=== PATIENT | female | born 2000 | race African-American/Black ===

== ENCOUNTER 2021-01-29 02:40 | Inpatient (IN) | payer OTHER ==
[2021-01-29] MEDS ORDERED: SODIUM CHLORIDE 0.9% 500 ML 500 ML IV STA (03:40)
--- NOTE | 2021-01-29 03:44 | ED ---
General Adult HPI - General Chief complaint: Syncope Stated complaint: Fall, head injury Time Seen by Provider: 01/29/21 03:05 Source: patient, family Mode of arrival: ambulatory Limitations: no limitations - History of Present Illness Initial comments: Patient is a 21-year-old woman brought for evaluation after she had a syncopal episode. Patient states that a little after 2 AM she "fell out." Patient was not having any chest pain, dyspnea, diaphoresis at the time. When she fell she may have struck her head. The patient did have a similar episode about 2 weeks ago. Onset/Timin -: hour(s) Location: head Radiation: neck Quality: dull Consistency: constant Improves with: none Worsens with: none Associated Symptoms: syncope Treatments Prior to Arrival: none - Related Data Previous Rx's Medication Instructions Recorded Acetaminophen Tab [Tylenol] 650 mg PO Q6HR PRN tab 01/31/21 Famotidine [Pepcid] 20 mg PO BID #60 tab 01/31/21 Allergies Allergy/AdvReac Type Severity Reaction Status Date / Time No Known Allergies Allergy Verified 01/29/21 06:54 Review of Systems ROS Statement: Those systems with pertinent positive or pertinent negative responses have been documented in the HPI. ROS Other: All systems not noted in ROS Statement are negative. Constitutional: Denies: fever, chills, weakness Eyes: Denies: eye pain, vision change Respiratory: Denies: cough, dyspnea Cardiovascular: Reports: syncope. Denies: chest pain, palpitations, edema Gastrointestinal: Denies: abdominal pain, nausea, vomiting Genitourinary: Denies: dysuria, hematuria Musculoskeletal: Denies: back pain Skin: Denies: rash Neurological: Denies: headache, weakness, numbness Past Medical History Past Medical History: No Reported History History of Any Multi-Drug Resistant Organisms: None Reported Past Surgical History: No Surgical Hx Reported Past Psychological History: No Psychological Hx Reported Smoking Status: Never smoker Past Alcohol Use History: None Reported Past Drug Use History: None Reported - Past Family History Mother Additional Family Medical History / Comment(s): anemia,hyperthyroidism General Exam Limitations: no limitations General appearance: alert, in no apparent distress Head exam: Present: atraumatic, normocephalic Eye exam: Present: normal appearance. Absent: scleral icterus, conjunctival injection Neck exam: Present: normal inspection, tenderness. Absent: meningismus Respiratory exam: Present: normal lung sounds bilaterally. Absent: respiratory distress, wheezes, rales, rhonchi, stridor Cardiovascular Exam: Present: regular rate, normal rhythm, normal heart sounds. Absent: systolic murmur, diastolic murmur, rubs, gallop GI/Abdominal exam: Present: soft. Absent: distended, tenderness, guarding, rebound, rigid, mass Extremities exam: Present: normal inspection, normal capillary refill. Absent: pedal edema, calf tenderness Back exam: Present: normal inspection. Absent: CVA tenderness (R), CVA tenderness (L), vertebral tenderness Neurological exam: Present: alert, oriented X3, CN II-XII intact. Absent: motor sensory deficit Skin exam: Present: warm, dry, intact, normal color. Absent: rash Course Vital Signs 01/29/21 01/29/21 01/29/21 02:43 05:18 06:33 Temperature 98.6 F 98.5 F Pulse Rate 82 70 86 Respiratory 20 18 18 Rate Blood Pressure 88/58 106/61 92/63 O2 Sat by Pulse 100 100 100 Oximetry 01/29/21 01/29/21 01/29/21 08:04 08:14 08:44 Temperature 98.4 F 98.5 F 98.5 F Pulse Rate 83 81 68 Respiratory 16 18 18 Rate Blood Pressure 97/57 95/58 91/58 O2 Sat by Pulse 98 98 99 Oximetry 01/29/21 01/29/21 09:52 11:59 Temperature Pulse Rate 76 67 Respiratory 18 18 Rate Blood Pressure 93/60 108/57 O2 Sat by Pulse 99 100 Oximetry EKG Findings - EKG Results: EKG: interpreted by CHIP, WNL, sinus rhythm (Rate 70 bpm), normal axis, normal QRS, normal ST/T, no acute changes - RI, Pacemaker, Normal: Normal tracing: normal tracing Medical Decision Making - Lab Data Result diagrams: 01/31/21 06:14 01/29/21 04:15 Lab Results 01/29/21 01/29/21 01/29/21 Range/Units 04:15 04:15 04:15 WBC 5.2 (3.8-10.6) k/uL RBC 3.32 L (3.80-5.40) m/uL Hgb 5.7 L* (11.4-16.0) gm/dL Hct 21.7 L (34.0-46.0) % MCV 65.4 L (80.0-100.0) fL MCH 17.3 L (25.0-35.0) pg MCHC 26.4 L (31.0-37.0) g/dL RDW 19.6 H (11.5-15.5) % Plt Count 353 (150-450) k/uL MPV 8.1 Neutrophils % 69 % Lymphocytes % 20 % Monocytes % 6 % Eosinophils % 1 % Basophils % 1 % Neutrophils # 3.6 (1.3-7.7) k/uL Lymphocytes # 1.1 (1.0-4.8) k/uL Monocytes # 0.3 (0-1.0) k/uL Eosinophils # 0.0 (0-0.7) k/uL Basophils # 0.1 (0-0.2) k/uL Hypochromasia Marked Poikilocytosis Slight Anisocytosis Slight Microcytosis Marked Retic Count (0.5-2.0) % PT 10.3 (9.0-12.0) sec INR 1.0 (<1.2) APTT 18.2 L (22.0-30.0) sec Sodium (137-145) mmol/L Potassium (3.5-5.1) mmol/L Chloride (98-107) mmol/L Carbon Dioxide (22-30) mmol/L Anion Gap mmol/L BUN (7-17) mg/dL Creatinine (0.52-1.04) mg/dL Est GFR (CKD-EPI)AfAm (>60 ml/min/1.73 sqM) Est GFR (CKD-EPI)NonAf (>60 ml/min/1.73 sqM) Glucose (74-99) mg/dL Calcium (8.4-10.2) mg/dL Iron (50-170) ug/dL TIBC (228-460) ug/dL % Saturation (12.00-45.00) Ferritin (10.0-291.0) ng/mL Total Bilirubin (0.2-1.3) mg/dL AST (14-36) U/L ALT (4-34) U/L Alkaline Phosphatase (38-126) U/L Troponin I (0.000-0.034) ng/mL Total Protein (6.3-8.2) g/dL Albumin (3.5-5.0) g/dL Urine Color Light Yellow Urine Appearance Clear (Clear) Urine pH 6.0 (5.0-8.0) Ur Specific Mcintosh 1.005 (1.001-1.035) Urine Protein Negative (Negative) Urine Glucose (UA) Negative (Negative) Urine Ketones Negative (Negative) Urine Blood Negative (Negative) Urine Nitrite Negative (Negative) Urine Bilirubin Negative (Negative) Urine Urobilinogen <2.0 (<2.0) mg/dL Ur Leukocyte Esterase Small H (Negative) Urine RBC <1 (0-5) /hpf Urine WBC 7 H (0-5) /hpf Ur Squamous Epith Cells 2 (0-4) /hpf Amorphous Sediment Rare H (None) /hpf Urine Bacteria Rare H (None) /hpf Blood Type Blood Type Confirm Blood Type Recheck Bld Type Recheck Status Antibody Screen Crossmatch Spec Expiration Date 01/29/21 01/29/21 01/29/21 Range/Units 04:15 04:15 04:15 WBC (3.8-10.6) k/uL RBC (3.80-5.40) m/uL Hgb (11.4-16.0) gm/dL Hct (34.0-46.0) % MCV (80.0-100.0) fL MCH (25.0-35.0) pg MCHC (31.0-37.0) g/dL RDW (11.5-15.5) % Plt Count (150-450) k/uL MPV Neutrophils % % Lymphocytes % % Monocytes % % Eosinophils % % Basophils % % Neutrophils # (1.3-7.7) k/uL Lymphocytes # (1.0-4.8) k/uL Monocytes # (0-1.0) k/uL Eosinophils # (0-0.7) k/uL Basophils # (0-0.2) k/uL Hypochromasia Poikilocytosis Anisocytosis Microcytosis Retic Count 2.0 (0.5-2.0) % PT (9.0-12.0) sec INR (<1.2) APTT (22.0-30.0) sec Sodium 135 L (137-145) mmol/L Potassium 4.4 (3.5-5.1) mmol/L Chloride 105 (98-107) mmol/L Carbon Dioxide 23 (22-30) mmol/L Anion Gap 7 mmol/L BUN 13 (7-17) mg/dL Creatinine 0.63 (0.52-1.04) mg/dL Est GFR (CKD-EPI)AfAm >90 (>60 ml/min/1.73 sqM) Est GFR (CKD-EPI)NonAf >90 (>60 ml/min/1.73 sqM) Glucose 103 H (74-99) mg/dL Calcium 9.2 (8.4-10.2) mg/dL Iron (50-170) ug/dL TIBC (228-460) ug/dL % Saturation (12.00-45.00) Ferritin (10.0-291.0) ng/mL Total Bilirubin 0.2 (0.2-1.3) mg/dL AST 31 (14-36) U/L ALT 7 (4-34) U/L Alkaline Phosphatase 44 (38-126) U/L Troponin I <0.012 (0.000-0.034) ng/mL Total Protein 7.5 (6.3-8.2) g/dL Albumin 4.3 (3.5-5.0) g/dL Urine Color Urine Appearance (Clear) Urine pH (5.0-8.0) Ur Specific Mcintosh (1.001-1.035) Urine Protein (Negative) Urine Glucose (UA) (Negative) Urine Ketones (Negative) Urine Blood (Negative) Urine Nitrite (Negative) Urine Bilirubin (Negative) Urine Urobilinogen (<2.0) mg/dL Ur Leukocyte Esterase (Negative) Urine RBC (0-5) /hpf Urine WBC (0-5) /hpf Ur Squamous Epith Cells (0-4) /hpf Amorphous Sediment (None) /hpf Urine Bacteria (None) /hpf Blood Type Blood Type Confirm Blood Type Recheck Bld Type Recheck Status Antibody Screen Crossmatch Spec Expiration Date 01/29/21 01/29/21 01/29/21 Range/Units 04:15 06:10 06:17 WBC (3.8-10.6) k/uL RBC (3.80-5.40) m/uL Hgb (11.4-16.0) gm/dL Hct (34.0-46.0) % MCV (80.0-100.0) fL MCH (25.0-35.0) pg MCHC (31.0-37.0) g/dL RDW (11.5-15.5) % Plt Count (150-450) k/uL MPV Neutrophils % % Lymphocytes % % Monocytes % % Eosinophils % % Basophils % % Neutrophils # (1.3-7.7) k/uL Lymphocytes # (1.0-4.8) k/uL Monocytes # (0-1.0) k/uL Eosinophils # (0-0.7) k/uL Basophils # (0-0.2) k/uL Hypochromasia Poikilocytosis Anisocytosis Microcytosis Retic Count (0.5-2.0) % PT (9.0-12.0) sec INR (<1.2) APTT (22.0-30.0) sec Sodium (137-145) mmol/L Potassium (3.5-5.1) mmol/L Chloride (98-107) mmol/L Carbon Dioxide (22-30) mmol/L Anion Gap mmol/L BUN (7-17) mg/dL Creatinine (0.52-1.04) mg/dL Est GFR (CKD-EPI)AfAm (>60 ml/min/1.73 sqM) Est GFR (CKD-EPI)NonAf (>60 ml/min/1.73 sqM) Glucose (74-99) mg/dL Calcium (8.4-10.2) mg/dL Iron 8 L (50-170) ug/dL TIBC 470 H (228-460) ug/dL % Saturation 1.70 L (12.00-45.00) Ferritin 4.0 L (10.0-291.0) ng/mL Total Bilirubin (0.2-1.3) mg/dL AST (14-36) U/L ALT (4-34) U/L Alkaline Phosphatase (38-126) U/L Troponin I (0.000-0.034) ng/mL Total Protein (6.3-8.2) g/dL Albumin (3.5-5.0) g/dL Urine Color Urine Appearance (Clear) Urine pH (5.0-8.0) Ur Specific Mcintosh (1.001-1.035) Urine Protein (Negative) Urine Glucose (UA) (Negative) Urine Ketones (Negative) Urine Blood (Negative) Urine Nitrite (Negative) Urine Bilirubin (Negative) Urine Urobilinogen (<2.0) mg/dL Ur Leukocyte Esterase (Negative) Urine RBC (0-5) /hpf Urine WBC (0-5) /hpf Ur Squamous Epith Cells (0-4) /hpf Amorphous Sediment (None) /hpf Urine Bacteria (None) /hpf Blood Type O Positive Blood Type Confirm O Positive Blood Type Recheck No Previous Record Bld Type Recheck Status CABO Indicated Antibody Screen NEGATIVE Crossmatch See Detail Spec Expiration Date 02/01/20212309 Disposition Clinical Impression: Syncope, Anemia Disposition: ADMITTED IP TO THIS [facility] Condition: Stable Is patient prescribed a controlled substance at d/c from ED?: No
[2021-01-29 04:43] LABS: ALT 7 U/L (4-34); AST 31 U/L (14-36); African American GFR (CKD) >90 (>60 ml/min/1.73 sqM); Albumin 4.3 g/dL (3.5-5.0); Alkaline Phosphatase 44 U/L (38-126); Anion Gap 7 mmol/L; Blood Urea Nitrogen 13 mg/dL (7-17); Calcium 9.2 mg/dL (8.4-10.2); Carbon Dioxide 23 mmol/L (22-30); Chloride 105 mmol/L (98-107); Glucose 103 mg/dL (74-99); Non-African American GFR(CKD) >90 (>60 ml/min/1.73 sqM); Potassium 4.4 mmol/L (3.5-5.1); Sodium 135 mmol/L (137-145); Total Bilirubin 0.2 mg/dL (0.2-1.3); Total Protein 7.5 g/dL (6.3-8.2)
[2021-01-29 04:56] LABS: Anisocytosis Slight; Basophils # (A) 0.1 k/uL (0-0.2); Basophils % (A) 1 %; Eosinophils % (A) 1 %; HCT 21.7 % (34.0-46.0); Hypochromasia Marked; Lymphocytes # (A) 1.1 k/uL (1.0-4.8); Lymphocytes % (A) 20 %; MCH 17.3 pg (25.0-35.0); MCHC 26.4 g/dL (31.0-37.0); MCV 65.4 fL (80.0-100.0); Mean Platelet Volume 8.1; Microcytosis Marked; Monocytes # (A) 0.3 k/uL (0-1.0); Monocytes % (A) 6 %; Neutrophils # (A) 3.6 k/uL (1.3-7.7); Neutrophils % (A) 69 %; Platelet Count 353 k/uL (150-450); Poikilocytosis Slight; RBC 3.32 m/uL (3.80-5.40); RDW 19.6 % (11.5-15.5); WBC 5.2 k/uL (3.8-10.6)
[2021-01-29 05:02] LABS: HGB 5.7 gm/dL (11.4-16.0)
[2021-01-29 05:08] LABS: Prothrombin Time 10.3 sec (9.0-12.0)
--- NOTE | 2021-01-29 05:12 | XR ---
EXAMINATION TYPE: XR chest 2V DATE OF EXAM: 01/29/2021 COMPARISON: NONE HISTORY: Syncope TECHNIQUE: 2 views FINDINGS: Heart and mediastinum are normal. Lungs are clear. Diaphragm is normal. Bony thorax is inta ct. IMPRESSION: Normal chest.
[2021-01-29 05:15] LABS: Partial Thromboplastin Time 18.2 sec (22.0-30.0)
--- NOTE | 2021-01-29 05:15 | CT ---
EXAMINATION TYPE: CT brain cspine wo con DATE OF EXAM: 01/29/2021 COMPARISON: November 16, 2010 HISTORY: right side neck pain, blacked out and fell CT DLP: 1188 mGycm Automated exposure control for dose reduction was used. Ventricles and sulci appear normal. There is no mass effect nor midline shift. There is no sign of in tracranial hemorrhage. Calvarium is intact. Skull base is intact. There is normal aeration of the mas toid sinuses. Cervical vertebra have normal alignment. Disc spaces are normal. Posterior elements are intact. Facet joints appear normal. Prevertebral soft tissues appear normal. IMPRESSION: Normal CT scan of the brain. No change. Negative CT scan cervical spine.
[2021-01-29 05:32] LABS: Amorphous Sediment,Urine Rare /hpf; Appearance,Urine Clear (Clear); Bacteria,Urine Rare /hpf; Bilirubin,Urine Negative (Negative); Blood,Urine Negative (Negative); Color,Urine Light Yellow; Glucose,Urine (UA) Negative (Negative); Ketones,Urine Negative (Negative); Leukocyte Esterase,Urine Small (Negative); Nitrite,Urine Negative (Negative); Protein,Urine Negative (Negative); RBC,Urine <1 /hpf (0-5); Specific Gravity,Urine 1.005 (1.001-1.035); Squamous Epithelial Cell,Urine 2 /hpf (0-4); Urobilinogen,Urine <2.0 mg/dL (<2.0); WBC,Urine 7 /hpf (0-5)
[2021-01-29] MEDS ORDERED: ACETAMINOPHEN TAB 325 MG TAB PO PRN (05:59)
[2021-01-29] MEDS ORDERED: NALOXONE 0.4 MG/ML 1 ML VIAL IV PRN (05:59)
[2021-01-29] MEDS: SODIUM CHLORIDE 0.9% 1,000 ML IV SCH (06:33)
[2021-01-29] MEDS: FAMOTIDINE 20 MG TAB PO SCH ×2 (10:17→20:41)
[2021-01-29 10:58] LABS: % Iron Saturation 1.7 (12.00-45.00)
[2021-01-29 11:18] LABS: Anisocytosis Moderate; Basophils % (A) 1 %; Eosinophils % (A) 1 %; HCT 26.5 % (34.0-46.0); HGB 7.1 gm/dL (11.4-16.0); Hypochromasia Marked; Lymphocytes # (A) 1.2 k/uL (1.0-4.8); Lymphocytes % (A) 20 %; MCH 18.5 pg (25.0-35.0); MCHC 26.7 g/dL (31.0-37.0); MCV 69.3 fL (80.0-100.0); Mean Platelet Volume 8.3; Microcytosis Marked; Monocytes # (A) 0.2 k/uL (0-1.0); Monocytes % (A) 4 %; Neutrophils # (A) 4.2 k/uL (1.3-7.7); Neutrophils % (A) 71 %; Platelet Count 291 k/uL (150-450); Poikilocytosis Marked; RBC 3.82 m/uL (3.80-5.40); RDW 20.4 % (11.5-15.5); WBC 5.8 k/uL (3.8-10.6)
--- NOTE | 2021-01-29 14:05 | P.HPIM ---
History of Present Illness Patient is an 21-year-old female came in with a syncopal episode. Patient is still lightheaded. Patient is found to have hemoglobin of 6.7. Patient was comparing of menometrorrhagia sometimes associated with clots. Patient menst rual cycle lasts more than 5 days. Patient is found to have a microcytic anemia with MCV of around 67, does have RDW along with anisocytosis and microcytosis. Serum ferritin level is around 4. Patient denied any blood in the stools dark stools or hematemesis. Patient denied any history of thalassemia as her sickle cell traits of sickle cell disease in any of the family members. Patient reticu locyte count is within normal limits REVIEW OF SYSTEMS: CONSTITUTIONAL: No fever, no malaise, no fatigue. HEENT: No recent visual problems or hearing problems. Denied any sore throat. CARDIOVASCULAR: No chest pain, orthopnea, PND, no palpitations, PULMONARY: No shortness of breath, no cough, no hemoptysis. GASTROINTESTINAL: No diarrhea, no nausea, no vomiting, no abdominal pain. NEUROLOGICAL: No headaches, no weakness, no numbness. HEMATOLOGICAL: Denies any bleeding or petechiae. GENITOURINARY: Denies any burning micturition, frequency, or urgency. MUSCULOSKELETAL/RHEUMATOLOGICAL: Denies any joint pain, swelling, or any muscle pain. ENDOCRINE: Denies any polyuria or polydipsia. The rest of the 14-point review of systems is negative. PHYSICAL EXAMINATION: GENERAL: The patient is alert and oriented x3, not in any acute distress. Well developed, well nourished. HEENT: Pupils are round and equally reacting to light. EOMI. No scleral icterus. Does have conjunctival pallor. Normocephalic, atraumatic. No pharyngeal erythema. No thyromegaly. CARDIOVASCULAR: S1 and S2 present. No murmurs, rubs, or gallops. PULMONARY: Chest is clear to auscultation, no wheezing or crackles. ABDOMEN: Soft, nontender, nondistended, normoactive bowel sounds. No palpable organomegaly. MUSCULOSKELETAL: No joint swelling or deformity. EXTREMITIES: No cyanosis, clubbing, or pedal edema. NEUROLOGICAL: Gross neurological examination did not reveal any focal deficits. SKIN: No rashes. Assessment and plan -Syncope: Secondary to severe anemia which is probably subacute to chronic blood loss from her menometrorrhagia. Patient used to use of oral contraceptive pills in the past. Patient does have irregular cycles. Gynecology will be consulted patient will be transfused 1 more unit of blood considering her lightheadedness and her hemoglobin still below 8. -Symptomatic anemia -Severe iron deficiency patient will be given IV iron supplementation as well. We'll also do hemoglobin electrophoresis considering her race, the possibility of beta thalassemia are sickle cell trait or disease is low. -I symptomatic bacteriuria DVT prophylaxis: Early ambulation Past Medical History Past Medical History: No Reported History History of Any Multi-Drug Resistant Organisms: None Reported Past Surgical History: No Surgical Hx Reported Past Psychological History: No Psychological Hx Reported Smoking Status: Never smoker Past Alcohol Use History: None Reported Past Drug Use History: None Reported Medications and Allergies Home Medications Medication Instructions Recorded Confirmed Type No Known Home Medications 01/29/21 01/29/21 History Allergies Allergy/AdvReac Type Severity Reaction Status Date / Time No Known Allergies Allergy Verified 01/29/21 06:54 Physical Exam Vitals: Vital Signs Temp Pulse Pulse Resp BP BP Pulse Ox 01/29/21 12:50 98.7 F 65 16 107/67 100 01/29/21 11:59 67 18 108/57 100 01/29/21 09:52 76 18 93/60 99 01/29/21 08:44 98.5 F 68 18 91/58 99 01/29/21 08:14 98.5 F 81 18 95/58 98 01/29/21 08:04 98.4 F 83 16 97/57 98 01/29/21 06:33 86 18 92/63 100 01/29/21 05:18 98.5 F 70 18 106/61 100 01/29/21 02:43 98.6 F 82 20 88/58 100 Intake and Output 01/28/21 01/29/21 01/29/21 22:59 06:59 14:59 Intake Total 310 Balance 310 Intake: Blood Product 310 Rc As-1 Unit 310 [id number] Other: Weight 52.163 kg Results CBC & Chem 7: 01/29/21 10:56 01/29/21 04:15 Labs: Abnormal Lab Results - Last 24 Hours (Table) 01/29/21 01/29/21 01/29/21 Range/Units 04:15 04:15 04:15 RBC 3.32 L (3.80-5.40) m/uL Hgb 5.7 L* (11.4-16.0) gm/dL Hct 21.7 L (34.0-46.0) % MCV 65.4 L (80.0-100.0) fL MCH 17.3 L (25.0-35.0) pg MCHC 26.4 L (31.0-37.0) g/dL RDW 19.6 H (11.5-15.5) % APTT 18.2 L (22.0-30.0) sec Sodium (137-145) mmol/L Glucose (74-99) mg/dL Iron (50-170) ug/dL TIBC (228-460) ug/dL % Saturation (12.00-45.00) Ferritin (10.0-291.0) ng/mL Ur Leukocyte Esterase Small H (Negative) Urine WBC 7 H (0-5) /hpf Amorphous Sediment Rare H (None) /hpf Urine Bacteria Rare H (None) /hpf Crossmatch 01/29/21 01/29/21 01/29/21 Range/Units 04:15 04:15 06:10 RBC (3.80-5.40) m/uL Hgb (11.4-16.0) gm/dL Hct (34.0-46.0) % MCV (80.0-100.0) fL MCH (25.0-35.0) pg MCHC (31.0-37.0) g/dL RDW (11.5-15.5) % APTT (22.0-30.0) sec Sodium 135 L (137-145) mmol/L Glucose 103 H (74-99) mg/dL Iron 8 L (50-170) ug/dL TIBC 470 H (228-460) ug/dL % Saturation 1.70 L (12.00-45.00) Ferritin 4.0 L (10.0-291.0) ng/mL Ur Leukocyte Esterase (Negative) Urine WBC (0-5) /hpf Amorphous Sediment (None) /hpf Urine Bacteria (None) /hpf Crossmatch See Detail 01/29/21 Range/Units 10:56 RBC (3.80-5.40) m/uL Hgb 7.1 L (11.4-16.0) gm/dL Hct 26.5 L (34.0-46.0) % MCV 69.3 L (80.0-100.0) fL MCH 18.5 L (25.0-35.0) pg MCHC 26.7 L (31.0-37.0) g/dL RDW 20.4 H (11.5-15.5) % APTT (22.0-30.0) sec Sodium (137-145) mmol/L Glucose (74-99) mg/dL Iron (50-170) ug/dL TIBC (228-460) ug/dL % Saturation (12.00-45.00) Ferritin (10.0-291.0) ng/mL Ur Leukocyte Esterase (Negative) Urine WBC (0-5) /hpf Amorphous Sediment (None) /hpf Urine Bacteria (None) /hpf Crossmatch
[2021-01-29] MEDS: SODIUM FERRIC GLUCONAT-SUCROSE 125 MG in SODIUM CHLORIDE 0.9% 100 ML IVPB SCH (14:28)
--- NOTE | 2021-01-29 21:15 | US ---
EXAMINATION TYPE: US abdomen limited DATE OF EXAM: 01/29/2021 COMPARISON: NONE CLINICAL HISTORY: splenomegaly. Splenomegaly per order. EXAM MEASUREMENTS: Spleen: 9.0 cm Left Kidney: 11.0 x 5.3 x 3.9 cm 1. Spleen: Hyperechoic focus seen measuring 0.2 x 0.2 x 0.2 cm. Additional tiny scattered hyperecho ic foci seen within spleen. 2. Left Kidney: No hydronephrosis or masses seen. Heterogeneous appearance. IMPRESSION: There are small echogenic foci in the spleen that could relate to granulomatous disease. There is no splenomegaly.
[2021-01-30 06:00] LABS: Anisocytosis Moderate; Basophils # (A) 0.1 k/uL (0-0.2); Basophils % (A) 1 %; Eosinophils # (A) 0.1 k/uL (0-0.7); Eosinophils % (A) 1 %; HCT 27.2 % (34.0-46.0); HGB 8.3 gm/dL (11.4-16.0); Hypochromasia Marked; Lymphocytes # (A) 1.7 k/uL (1.0-4.8); Lymphocytes % (A) 20 %; MCH 21.6 pg (25.0-35.0); MCHC 30.4 g/dL (31.0-37.0); Mean Platelet Volume 8.7; Microcytosis Marked; Monocytes # (A) 0.5 k/uL (0-1.0); Monocytes % (A) 6 %; Neutrophils # (A) 5.8 k/uL (1.3-7.7); Neutrophils % (A) 71 %; Platelet Count 244 k/uL (150-450); Poikilocytosis Marked; RBC 3.83 m/uL (3.80-5.40); RDW 21.9 % (11.5-15.5); WBC 8.2 k/uL (3.8-10.6)
[2021-01-30] MEDS: FAMOTIDINE 20 MG TAB PO SCH ×2 (08:18→08:19)
[2021-01-30] MEDS: SODIUM FERRIC GLUCONAT-SUCROSE 125 MG in SODIUM CHLORIDE 0.9% 100 ML IVPB SCH (08:19)
[2021-01-30] MEDS: SODIUM CHLORIDE 0.9% 1,000 ML IV SCH (08:19)
--- NOTE | 2021-01-30 08:29 | P.OBCN ---
History of Present Illness Consult date: 01/30/21 Requesting physician: Luis Morrissey Reason for consult: menorrhagia Chief complaint: Syncope with anemia History of present illness: This is a 21-year-old female 1 para 1 who presented to the emergency room after a syncopal episode where she fell and hit her head. She was found to be very anemic with a hemoglobin of 5.7. She was admitted and given blood. I am consulted for metromenorrhagia. In asking the patient about her periods, she states that her periods are regular and normal and not heavy. She states that they are generally once a month and she occasionally will skip a period and they last 5-6 days with normal flow. She states her last menstrual period was around the beginning of December and lasted 5-6 days. She is not currently bleeding. She occasionally will have some bleeding in between periods that is "thinner". She does have an [employer] that she follows with out of [place]. She stopped her recently in November or December of this year and did have a Pap smear that she states was normal. She has recently been treated for trichomonas and was due to go back for a test of cure on January 15 but missed her appointment. The patient does also have a history of chlamydia treated in 2016 and she has been treated for Trichomonas twice. She does not have a current partner. Her history is significant for 1 vaginal delivery in December 2018. She was on dip oh for many years due to vomiting with her menses. Her menses started at age 8. She was on control pills for a short while after she delivered her child but not currently. She denies any history of heavy menses. She is not opposed to restarting control pills. She cannot remember the name of the pill that she was recently on. Review of Systems Respiratory: Denies dyspnea Genitourinary: Reports dysmenorrhea (Mild), Denies Menstruation: Reports menses 1-7 days, Reports menses variable, Denies period heavy Neurological: Reports syncope Past Medical History Past Medical History: No Reported History Additional Past Medical History / Comment(s): required blood transfusion when giving to her child, had a seizure at 2 years old-no further seizures History of Any Multi-Drug Resistant Organisms: None Reported Past Surgical History: No Surgical Hx Reported Past Anesthesia/Blood Transfusion Reactions: No Reported Reaction Past Psychological History: No Psychological Hx Reported Smoking Status: Current every day smoker, Vaper Past Alcohol Use History: None Reported Past Drug Use History: Marijuana Additional Drug Use History / Comment(s): current marijuana user - Past Family History Mother Additional Family Medical History / Comment(s): anemia,hyperthyroidism Medications and Allergies Home Medications Medication Instructions Recorded Confirmed Type No Known Home Medications 01/29/21 01/29/21 History Allergies Allergy/AdvReac Type Severity Reaction Status Date / Time No Known Allergies Allergy Verified 01/29/21 06:54 Exam Osteopathic Statement: *. No significant issues noted on an osteopathic structural exam other than those noted in the History and Physical/Consult. Vital Signs Temp Pulse Pulse Resp BP BP Pulse Ox 01/30/21 05:00 97.0 F L 64 18 109/66 100 01/29/21 20:53 98.9 F 63 18 101/63 99 01/29/21 20:36 97.5 F L 68 18 119/77 100 01/29/21 17:59 98.9 F 60 18 107/68 01/29/21 17:29 98.1 F 86 16 122/77 01/29/21 17:19 98.6 F 58 L 16 100/65 01/29/21 12:50 98.7 F 65 16 107/67 100 01/29/21 11:59 67 18 108/57 100 01/29/21 09:52 76 18 93/60 99 01/29/21 08:44 98.5 F 68 18 91/58 99 Intake and Output 01/29/21 01/30/21 01/30/21 22:59 06:59 14:59 Intake Total 1390 500 Balance 1390 500 Intake: Intake, IV Titration 100 Amount Sodium Ferric Gluconat- 100 Sucrose 125 mg In Sodium Chloride 0.9% 100 ml @ 100 mls/hr IVPB DAILY YONG Rx#:[id number] Oral 980 500 Blood Product 310 Rc As-1 Unit 310 [id number] Other: Voiding Method Toilet # Voids 3 5 Weight 52.163 kg Gen.: Cooperative somewhat drowsy well-developed well-nourished -[place] female in no acute distress Pelvic exam: Deferred at this time Results Result Diagrams: 01/30/21 05:32 01/29/21 04:15 Abnormal Lab Results - Last 24 Hours (Table) 01/29/21 01/29/21 01/29/21 Range/Units 04:15 06:10 10:56 Hgb 7.1 L (11.4-16.0) gm/dL Hct 26.5 L (34.0-46.0) % MCV 69.3 L (80.0-100.0) fL MCH 18.5 L (25.0-35.0) pg MCHC 26.7 L (31.0-37.0) g/dL RDW 20.4 H (11.5-15.5) % Iron 8 L (50-170) ug/dL TIBC 470 H (228-460) ug/dL % Saturation 1.70 L (12.00-45.00) Ferritin 4.0 L (10.0-291.0) ng/mL Crossmatch See Detail 01/30/21 Range/Units 05:32 Hgb 8.3 L (11.4-16.0) gm/dL Hct 27.2 L (34.0-46.0) % MCV 71.0 L (80.0-100.0) fL MCH 21.6 L (25.0-35.0) pg MCHC 30.4 L (31.0-37.0) g/dL RDW 21.9 H (11.5-15.5) % Iron (50-170) ug/dL TIBC (228-460) ug/dL % Saturation (12.00-45.00) Ferritin (10.0-291.0) ng/mL Crossmatch Assessment and Plan (1) Syncope Current Visit: Yes Status: Acute Code(s): R55 - SYNCOPE AND COLLAPSE SNOMED Code(s): 614760804 (2) Anemia Current Visit: Yes Status: Acute Code(s): D64.9 - ANEMIA, UNSPECIFIED SNOMED Code(s): 392581837 Plan: In speaking with the patient, I do not believe that her periods are the cause of her anemia. She denies any history of heavy menses and her periods are generally regular. She does have an [employer] that she can follow up with after discharge. I have advised her that if she is unable to follow-up with her [employer], that she may make an appointment at my office for follow-up. It may be helpful to resume her control pills to regulate her menses, however I do not believe that her menses are the cause of her significant anemia due to the fact that her menses are fairly regular in flow. Thank you very much for this consultation.
[2021-01-30] MEDS ORDERED: ONDANSETRON 4 MG/2 ML VIAL IVP PRN (12:15)
[2021-01-30] MEDS: IOPAMIDOL CONTRAST (ORAL USE) VIAL PO PRN ×2 (14:09→14:59)
--- NOTE | 2021-01-30 16:24 | CT ---
EXAMINATION TYPE: CT abdomen pelvis w con DATE OF EXAM: 01/30/2021 COMPARISON: None HISTORY: abdominal pain CT DLP: 367.9 mGycm Automated exposure control for dose reduction was used. CONTRAST: CT scan of the abdomen pelvis is performed with IV Contrast, patient injected with 100 mL of Isovue 3 00. FINDINGS- Lung bases are clear. There is a small amount of free fluid within the abdomen surrounding the liver and spleen. Liver and spleen are homogeneous in attenuation. Pancreas has a normal appearance. No obv ious gallstones. Kidneys are symmetric in size with no hydronephrosis. Mesenteric vasculature and aorta enhance normally. Portal veins enhance normally. Heart size mildly p rominent. Bowel gas pattern nonspecific. There is more moderate amount of free fluid seen throughout the lower pelvis and. Heterogeneity thin appearance of the cervix and uterus with pelvic varices noted. Endomet rium appears to be thickened. Appendix is not visualized. Bowel gas pattern nonspecific without obstr uction. Retained fecal debris throughout the colon. Appendix is not seen with certainty. There is mil d thickening of the gastric antrum. There is a vague area of enhancement on image 58 through 62 and t he left adnexal region appears to be within the free fluid. Several nonspecific and indeterminate fin ding. Report called to the patient's nurse 4:17 PM 01/30/2021. IMPRESSION- 1. Moderate amount of ascites correlate clinically. There is a vague area of hyperdensity measuring 2 .3 cm adjacent to the left lateral body of the uterus and the left adnexa. Most may be related to non specific enhancement although extravasation from a vascular structure or hemorrhage would also be in the differential diagnosis. Given the finding is indeterminate pelvic ultrasound recommended. 2. Heterogeneity of the uterus and lower uterine segment extending in the cervix. Suspect right-sided cystic ovarian or adnexal lesion recommend pelvic ultrasound. Additionally endometrium appears to be thickened. 3. Mild thickening of the gastric antrum could be related to incomplete distention although correlati on clinically is recommended to exclude gastritis or peptic ulcer disease.
--- NOTE | 2021-01-30 17:32 | US ---
EXAMINATION TYPE: US pelvis complete transvag DATE OF EXAM: 01/30/2021 COMPARISON: CT 01/30/2021 CLINICAL HISTORY: Hyperdensity noted on CT L lateral body of uterus . Difficult exam due to large am ount of free fluid and peristalsing bowel in bilateral adnexa TECHNIQUE: . Transabdominal sonographic images of the pelvis were acquired. Transvaginal sonographi c images were medically necessary to better assess the following anatomy: ovaries Date of LMP: December 2020 EXAM MEASUREMENTS: Uterus: 9.9 x 5.0 x 5.3 cm Endometrial Stripe: 1.6 cm Right Ovary: 3.3 x 2.3 x 1.8 cm Left Ovary: 4.7 x 4.5 x 2.4 cm 1. Uterus: Anteverted wnl 2. Endometrium: Thickened with free fluid within 3. Right Ovary: Complex cystic area visualized measuring 2.9 x 1.6 x 1.6 cm 4. Left Ovary: 4.4 x 2.9 x 4.3 cm cystic area visualized in left adnexa- possible left ovarian cyst, appears simple Spectral, color and waveform doppler imaging shows good arterial and venous flow within the ovaries ; there is no evidence for ovarian torsion within the left ovary. 5. Bilateral Adnexa: Large amount of free fluid visualized bilaterally 6. Posterior cul-de-sac: Large amount of free fluid visualized IMPRESSION: 1. Complex cyst right ovary. Follow-up is recommended in 6 weeks or at the next normal menstrual zonia od. 2. Large simple appearing cyst which can be followed 3. Large amount of free fluid present
--- NOTE | 2021-01-30 20:19 | P.PN ---
Subjective Progress Note Date: 01/30/21 Patient is an 21-year-old female came in with a syncopal episode. Patient is still lightheaded. Patient is found to have hemoglobin of 6.7. Patient was comparing of menometrorrhagia sometimes associated with clots. Patient menstrual cycle lasts more than 5 days. Patient is found to have a microcytic anemia with MCV of around 67, does have RDW along with anisocytosis and microcytosis. Serum ferritin level is around 4. Patient denied any blood in the stools dark stools or hematemesis. Patient denied any history of thalassemia as her sickle cell traits of sickle cell disease in any of the [facility] members. Patient reticulocyte count is within normal limits 01/30/2021 Patient Is seen in follow-up with no acute overnight issues. During midmorning patient experienced severe abdominal cramping and discomfort noted in the umbilical area radiating around to the left lower abdomen and had some nausea associated. Mild globin is improved at 8.3 today and denies any further bleeding. Patient denies any bleeding from bowel and had a bowel movement yesterday but none reported today. Tolerating diet. Patient underwent CT abdomen showing a moderate amount of ascites with a vague area of hyperdensity measuring 2.3 cm adjacent to the left lateral body of the uterus and left adnexa that may be related nonspecific enhancement although extravasation from a vascular structure or hemorrhage is not excluded and recommending pelvic ultrasound, heterogeneity of the uterus and lower uterine segment extending in the cervix with suspect right-sided cystic ovarian or adnexal lesion in the endometrium appears to be thickened with mild thickening in the gastric antrum. Pelvic ultrasound ordered and pending. Review of systems: Constitutional: reports of fatigue, no reports of fever, or chills Cardiovascular: No reports of chest pain or palpitations Respiratory: No reports of shortness of breath or cough GI: reports of nausea, and severe abdominal pain in the umbilical area with a burning sensation : No reports of dysuria or retention Neurovascular: No reports of weakness or numbness All medications have been reviewed PHYSICAL EXAMINATION: GENERAL: The patient is alert and oriented x3, not in any acute distress. Well developed, well nourished. HEENT: Pupils are round and equally reacting to light. EOMI. No scleral icterus. Does have conjunctival pallor. Normocephalic, atraumatic. No pharyngeal erythema. No thyromegaly. CARDIOVASCULAR: S1 and S2 present. No murmurs, rubs, or gallops. PULMONARY: Chest is clear to auscultation, no wheezing or crackles. ABDOMEN: Soft, tenderness noted on the left lower quadrant on palpation, nondistended, normoactive bowel sounds. No palpable organomegaly. MUSCULOSKELETAL: No joint swelling or deformity. EXTREMITIES: No cyanosis, clubbing, or pedal edema. NEUROLOGICAL: Gross neurological examination did not reveal any focal deficits. SKIN: No rashes. Assessment and plan -Syncope: Secondary to severe anemia which is probably subacute to chronic blood loss from her menometrorrhagia. Patient used to use oral contraceptive pills in the past. Patient does have irregular cycles. Gynecology evaluated the patient recommending following up outpatient and resuming control pills -sudden onset Severe abdominal pain possibly due to ovarian cysts as noted on pelvic ultrasound. Will ask OBGYN to review ct and ultrasound of the abdomen and evaluate the patient. -Symptomatic anemia, improving, hemoglobin is 8.3 today with no bleeding noted -Severe iron deficiency patient will be given IV iron supplementation as well. hemoglobin electrophoresis done considering her race, the possibility of beta thalassemia are sickle cell trait or disease is low. -asymptomatic bacteriuria -DVT prophylaxis: Early ambulation Plan: continue current medications. Monitor hemoglobin closely. Patient received iron transfusions and started experiencing severe lower left and mid umbilical discomfort and tenderness with nausea noted and underwent ct abdomen which recommended pelvic ultrasound which revealed bilateral ovarian cysts along with some free fluid noted in the adnexa and posterior cul de sac. Will ask WHEEL LOADER OPERATOR to reevaluate the patient as well as the imaging and may consult surgery if warranted. Patient abdominal pain is improved and patient denies any further nausea or bleeding noted in the stool. Patient is passing gas and tolerating diet. Patient would like to establish with OBGYN and pcp here in town as she had been being seen in the [place] area. Will repeat labs and appreciate WHEEL LOADER OPERATOR recomm endations. Possible discharge in 24 hours. Objective - Vital Signs Vital signs: Vital Signs Temp 98.5 F 01/30/21 12:20 Pulse 66 01/30/21 11:44 Resp 12 01/30/21 11:44 BP 105/64 01/30/21 11:44 Pulse Ox 100 01/30/21 11:44 Intake & Output 01/29/21 01/30/21 01/30/21 18:59 06:59 18:59 Intake Total 1010 1310 Balance 1010 1310 Weight 52.163 kg Intake: Intake, IV Titration 100 Amount Sodium Ferric Gluconat- 100 Sucrose 125 mg In Sodium Chloride 0.9% 100 ml @ 100 mls/hr IVPB DAILY [facility] Rx#:[id number] Oral 600 1000 Blood Product 310 310 Rc As-1 Unit 0 310 [id number] Rc As-1 Unit 310 [id number] Other: Voiding Method Toilet Toilet # Voids 1 5 - Labs CBC & Chem 7: 01/30/21 05:32 01/29/21 04:15 Labs: Abnormal Lab Results - Last 24 Hours (Table) 01/29/21 01/29/21 01/30/21 Range/Units 06:10 10:56 05:32 Hgb 8.3 L (11.4-16.0) gm/dL Hct 27.2 L (34.0-46.0) % MCV 71.0 L (80.0-100.0) fL MCH 21.6 L (25.0-35.0) pg MCHC 30.4 L (31.0-37.0) g/dL RDW 21.9 H (11.5-15.5) % Hemoglobin A1 98.2 H (96.5-97.8) % Hemoglobin A2 1.8 L (2.2-3.2) % Crossmatch See Detail
[2021-01-30 20:55] VITALS: RESP 16
[2021-01-31] MEDS: SODIUM CHLORIDE 0.9% 1,000 ML IV SCH (05:20)
[2021-01-31 05:26] VITALS: BP 98/62; PULSE 58; TEMP 98.8
[2021-01-31 06:43] LABS: Anisocytosis Moderate; Basophils # (A) 0.1 k/uL (0-0.2); Basophils % (A) 1 %; Eosinophils # (A) 0.2 k/uL (0-0.7); Eosinophils % (A) 2 %; HCT 28.7 % (34.0-46.0); HGB 8.6 gm/dL (11.4-16.0); Hypochromasia Marked; Lymphocytes % (A) 22 %; MCH 21.3 pg (25.0-35.0); MCHC 29.8 g/dL (31.0-37.0); MCV 71.4 fL (80.0-100.0); Mean Platelet Volume 8.9; Microcytosis Marked; Monocytes # (A) 0.5 k/uL (0-1.0); Monocytes % (A) 5 %; Neutrophils # (A) 6.1 k/uL (1.3-7.7); Neutrophils % (A) 69 %; Platelet Count 233 k/uL (150-450); Poikilocytosis Marked; RBC 4.02 m/uL (3.80-5.40); RDW 22.6 % (11.5-15.5); WBC 8.8 k/uL (3.8-10.6)
[2021-01-31] MEDS: SODIUM FERRIC GLUCONAT-SUCROSE 125 MG in SODIUM CHLORIDE 0.9% 100 ML IVPB SCH (10:47)
[2021-01-31] MEDS: FAMOTIDINE 20 MG TAB PO SCH (10:47)
--- NOTE | 2021-01-31 23:28 | DS ---
DISCHARGE SUMMARY DATE OF SERVICE: 01/31/2021 FINAL DIAGNOSES: 1. Acute on chronic anemia, possibly secondary to menometrorrhagia. 2. Syncope secondary to severe anemia, status post blood transfusion. 3. Abdominal pain, ovarian cyst. 4. Severe and deficient anemia. 5. Asymptomatic bacteriuria. 6. Deep vein thrombosis prophylaxis. DISCHARGE DISPOSITION: The patient will be discharged in stable condition with guarded prognosis. HISTORY OF PRESENT ILLNESS: This 21-year-old gentleman woman with a past medical problems being, basically moving to this area, was admitted with issues of syncope. Hemoglobin is found to be 5.7. Menometrorrhagia was suspected. Patient was suspected iron deficiency. Serum iron was 8 and Percent TIBC was 470%, 1.7 . The patient was given altogether 2 units transfusion. Hemoglobin improved to 8.6. At this time, I recommend to follow up with [facility] for regarding the cyst, ovarian cyst, and also primary physician. Hemoglobin electrophoresis has been sent. PHYSICAL EXAM On exam, vitals are stable. Cardiovascular: S1, S2. Abdomen soft. Nervous System: Nonfocal. DISCHARGE ADVICE AND MEDICATIONS: 1. Diet cardiac diet. 2. Pepcid 20 mg p.o. b.i.d. 3. Tylenol 650 q.6h p.r.n. 4. Follow up with Dr. Kaylyn Toth in 1 week. 5. Follow up with [facility] in [address] Hartman, Neuro. 7. Follow up with Dr. Palomino in 1 week. 8. Iron supplementation once the hemoglobin electrophoresis clear. MMODL / IJN: [id number] / [facility] CENTERPaula
== END 2021-01-31 14:25 | disposition home or self-care (01) | DRG 812 ==
LOC: EC 02:40 → 5NMEDONC 06:01 → OBSVTOIN 09:59 → 5NMEDONC 11:44
PROVIDERS: ADMIT Hospitalist; ATTEND Hospitalist
PROC: 30233N1 Transfusion of Nonautologous Red Blood Cells into Peripheral Vein, Percutaneous Approach (ICD-10-PCS; principal; 2021-01-29)
DX: D62 Acute posthemorrhagic anemia (principal); N92.1 Excessive and frequent menstruation with irregular cycle; R55 Syncope and collapse; W19.XXXA Unspecified fall, initial encounter; S09.90XA Unspecified injury of head, initial encounter; N83.209 Unspecified ovarian cyst, unspecified side; R82.71 Bacteriuria; F17.290 Nicotine dependence, other tobacco product, uncomplicated
CPT/HCPCS: 36415; 70450; 71046; 72125; 74177; 76705; 76830; 76856; 80053; 81001; 82728; 83021; 83540; 83550; 84484; 84703; 85025; 85045; 85610; 85730; 86850; 86900; 86901; 86920; 93005; 93976; 94760; 99285

== ENCOUNTER 2024-08-09 04:33 | Emergency (ER) | payer OTHER ==
[2024-08-09 04:42] VITALS: RESP 18
--- NOTE | 2024-08-09 04:46 | ED ---
General Adult HPI - General Chief complaint: Nausea/Vomiting/Diarrhea Stated complaint: NVD Time Seen by Provider: 08/09/24 04:42 Source: patient, EMS Mode of arrival: EMS - History of Present Illness Initial comments: 24-year-old female no significant past medical history presenting today for nausea and vomiting. Patient states that she felt fine this evening, went to take her lunch break at work and drink a smoothie. She does not think there was berries in the smoothie however she is not sure because shortly afterwards she had 3 episodes of nonbloody nonbilious emesis. She states she felt like "she was having trouble catching her breathing" after vomiting but denies any chest pain and does not have CHARITO currently. Denies sensation of throat swelling, changes in vision, numbness or weakness. Did states that she felt lightheaded after episodes of emesis. Denies any fevers, abdominal pain, diarrhea, melena, hematochezia, vaginal bleeding, vaginal discharge dysuria or hematuria. States that her symptoms are now improving and she feels mildly lightheaded, her nausea is improving after Zofran for and to IV fluids from EMS. She does not believe to be though first day her last menstrual period was July 05, she is sexually active with men and is not on control. She does state that her periods can be somewhat irregular. She denies fevers, chills or recent illness. - Related Data Previous Rx's Medication Instructions Recorded Acetaminophen Tab [Tylenol] 650 mg PO Q6HR PRN tab 01/31/21 Famotidine [Pepcid] 20 mg PO BID #60 tab 01/31/21 Cephalexin [Keflex] 500 mg PO Q12HR 5 Days #10 cap 08/09/24 Allergies Allergy/AdvReac Type Severity Reaction Status Date / Time blackberry Allergy Rash/Hives Verified 08/09/24 04:42 Review of Systems ROS Statement: Those systems with pertinent positive or pertinent negative responses have been documented in the HPI. ROS Other: All systems not noted in ROS Statement are negative. Past Medical History Past Medical History: No Reported History Additional Past Medical History / Comment(s): required blood transfusion when giving to her child, had a seizure at 2 years old-no further seizures History of Any Multi-Drug Resistant Organisms: None Reported Past Surgical History: No Surgical Hx Reported Past Anesthesia/Blood Transfusion Reactions: No Reported Reaction Past Psychological History: No Psychological Hx Reported Smoking Status: Never smoker Past Alcohol Use History: None Reported Past Drug Use History: None Reported - Past Family History Mother Additional Family Medical History / Comment(s): anemia,hyperthyroidism General Exam - General Exam Comments Initial Comments: PE: CONSTITUTIONAL: [no apparent distress, well appearing] SKIN: [warm, dry, no jaundice, hives or petechiae] EYES:[ pupils are equally round, extraocular movements intact without nystagmus, clear conjunctiva, non-icteric sclera] HENT: [normocephalic, atraumatic, moist mucus membranes, oropharynx clear without exudates] NECK: , [Full range of motion, normal appearance] PULMONARY: [clear to auscultation without wheezes, rhonchi, or rales, normal excursion, no accessory muscle use and no stridor] CARDIOVASCULAR:[ regular rate, rhythm, normal S1 and S2. No appreciated murmurs, rubs or gallops. Strong radial pulses with intact distal perfusion. No lower extremity edema] GASTROINTESTINAL: [soft, active bowel sounds throughout, non-tender, non- distended, no palpable masses, no rebound or guarding. No hepatosplenomegaly] GENITOURINARY: MUSCULOSKELETAL: [Extremities have no gross deformity, no edema, redness, or swelling. No calf swelling ] NEUROLOGIC: [_a/o x 3, GCS 15, normal mentation and speech. Moves all extremities x 4 without motor or sensory deficit] PSYCHIATRIC:[ _normal mood and affect, thought process is clear and linear] Course Vital Signs 08/09/24 08/09/24 04:35 06:56 Pulse Rate 71 102 H Respiratory 18 18 Rate Blood Pressure 106/72 102/72 O2 Sat by Pulse 100 97 Oximetry Medical Decision Making - Medical Decision Making Was pt. sent in by a medical professional or institution (, PA, SENIOR ACCOUNT REPRESENTATIVE, urgent care, hospital, or jail...) When possible be specific @ -No Did you speak to anyone other than the patient for history (EMS, parent, family, police, friend...)? What history was obtained from this source @ -No Did you review nursing and triage notes (agree or disagree)? Why? @ -I reviewed nursing and triage notes Were old charts reviewed (outside hosp., previous admission, EMS record, old EKG, old radiological studies, urgent care reports/EKG's, jail records)? Report findings @ -Medical records reviewed Differential Diagnosis (chest pain, altered mental status, abdominal pain women, abdominal pain men, vaginal bleeding, weakness, fever, dyspnea, syncope, headache, dizziness, GI bleed, back pain, seizure, CVA, palpatations, mental health, musculoskeletal)? Differential diagnose remains broad however top considerations include viral infection, gastroenetritis, , anaphylaxis/ allergic reaction, food se nsitivty/ intolerance, cholecystitis, DKA, this is not an all inclusive list EKG interpreted by me (3pts min.). @ -As above X-rays interpreted by me (1pt min.). @ -None done CT interpreted by me (1pt min.). @ -None done U/S interpreted by me (1pt. min.). @ -None done What testing was considered but not performed or refused? (CT, X-rays, U/S, labs)? Why? @ -None What meds were considered but not given or refused? Why? @ -None Did you discuss the management of the patient with other professionals (professionals i.e. , PA, SENIOR ACCOUNT REPRESENTATIVE, lab, RT, psych nurse, public health social worker, sales representative publications, teacher, chief supply chain officer, supervisor case loading)? Give summary @ -No Was smoking cessation discussed for >3mins.? @ -No Was critical care preformed (if so, how long)? @ -No Were there social determinants of health that impacted care today? How? (Homelessness, low income, unemployed, alcoholism, drug addiction, transportation, low edu. Level, literacy, decrease access to med. care, correction, rehab)? @ -No Was there de-escalation of care discussed even if they declined (Discuss DNR or withdrawal of care, Hospice)? @ -No What co-morbidities impacted this encounter? (DM, HTN, Smoking, COPD, CAD, Cancer, CVA, ARF, Chemo, Hep., AIDS, mental health diagnosis, sleep apnea, morbid obesity)? @ -None Was patient admitted / discharged? Hospital course, mention meds given and route, prescriptions, significant lab abnormalities, going to OR and other pertinent info. @ -Discharged- Patient is a pleasant 24 y/o female no significant PMH presenting today for sudden onset nausea and vomiting after drinking a smoothie at work this morning. 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 Physical exam is reassuring, abdomen soft and nontender with active bowel sounds. LCTAB. No hives/ skin changes or additional findings consistent with anaphylaxis. Plan for IV fluids, nausea medications, basic labs, UA, HCG. Labs show hemoglobin of 7.3, this is baseline for patient she has a history of iron deficiency anemia. UTI with positive nitrites leukocyte esterase. Will order Keflex. Updated pt to findings. On reassessment patient endorses improving symptoms request Sprite. Patient will attempt p.o. intake Patient tolerated crackers and soda. Symptoms are improving. Will send home with ODT Zofran and prescription for Keflex. Patient agreeable plan of care. In my medical judgment there is currently no evidence of an immediate life- threatening or surgical condition. Discharge is therefore indicated at this time. Discharge treatment instructions, follow up instructions, and appropriate em ergency department return precautions were discussed with the patient and/or medical decision maker. Patient and/or medical decision maker expressed understanding of and agreed with the treatment plan, follow up instructions, and emergency department return precaution. All patient's and/or medical decision maker's questions were answered. Undiagnosed new problem with uncertain prognosis? @ -No Drug Therapy requiring intensive monitoring for toxicity (Heparin, Nitro, Insulin, Cardizem)? @ -No Were any procedures done? @ -No Diagnosis/symptom? Nausea and vomiting, UTI Acute, or Chronic, or Acute on Chronic? @acute Uncomplicated (without systemic symptoms) or Complicated (systemic symptoms)? @complicated Side effects of treatment? @ -No Exacerbation, Progression, or Severe Exacerbation? @ -No Poses a threat to life or bodily function? How? (Chest pain, USA, IA, pneumonia, PE, COPD, DKA, ARF, appy, cholecystitis, CVA, Diverticulitis, Homicidal, Suicidal, threat to staff... and all critical care pts) @ -No - Lab Data Result diagrams: 08/09/24 04:44 08/09/24 04:44 Lab Results 08/09/24 08/09/24 08/09/24 Range/Units 04:44 04:44 05:00 WBC 6.3 (3.8-10.6) k/uL RBC 3.46 L (3.80-5.40) m/uL Hgb 7.3 L (11.4-16.0) gm/dL Hct 24.5 L (34.0-46.0) % MCV 70.9 L (80.0-100.0) fL MCH 21.2 L (25.0-35.0) pg MCHC 29.9 L (31.0-37.0) g/dL RDW 16.9 H (11.5-15.5) % Plt Count 211 (150-450) k/uL MPV 9.6 Neutrophils % 68 % Lymphocytes % 24 % Monocytes % 6 % Eosinophils % 1 % Basophils % 0 % Neutrophils # 4.3 (1.3-7.7) k/uL Lymphocytes # 1.5 (1.0-4.8) k/uL Monocytes # 0.4 (0-1.0) k/uL Eosinophils # 0.1 (0-0.7) k/uL Basophils # 0.0 (0-0.2) k/uL Hypochromasia Marked Anisocytosis Slight Microcytosis Moderate Sodium 135 L (137-145) mmol/L Potassium 3.8 (3.5-5.1) mmol/L Chloride 105 (98-107) mmol/L Carbon Dioxide 20 L (22-30) mmol/L Anion Gap 10 mmol/L BUN 22 H (7-17) mg/dL Creatinine 0.84 (0.52-1.04) mg/dL Est GFR (CKD-EPI)AfAm >90 (>60 ml/min/1.73 sqM) Est GFR (CKD-EPI)NonAf >90 (>60 ml/min/1.73 sqM) Glucose 105 H (74-99) mg/dL Calcium 8.4 (8.4-10.2) mg/dL Total Bilirubin 0.3 (0.2-1.3) mg/dL AST 23 (14-36) U/L ALT 8 (4-34) U/L Alkaline Phosphatase 40 (38-126) U/L Total Protein 6.8 (6.3-8.2) g/dL Albumin 3.9 (3.5-5.0) g/dL Lipase 58 (23-300) U/L HCG, Qual Not Detected Urine Color Colorless Urine Appearance Cloudy H (Clear) Urine pH 6.0 (5.0-8.0) Ur Specific [place] 1.025 (1.001-1.035) Urine Protein Trace H (Negative) Urine Glucose (UA) Negative (Negative) Urine Ketones Negative (Negative) Urine Blood Negative (Negative) Urine Nitrite Positive H (Negative) Urine Bilirubin Negative (Negative) Urine Urobilinogen <2.0 (<2.0) mg/dL Ur Leukocyte Esterase Small H (Negative) Urine RBC 1 (0-5) /hpf Urine WBC 3 (0-5) /hpf Ur Squamous Epith Cells 2 (0-4) /hpf Urine Bacteria Moderate H (None) /hpf Urine Mucus Moderate H (None) /hpf Urine Yeast (Budding) Rare H (None) /hpf Disposition Clinical Impression: Nausea and vomiting, UTI (urinary tract infection) Disposition: HOME SELF-CARE Condition: Stable Instructions (If sedation given, give patient instructions): Acute Nausea and Vomiting (ED) Additional Instructions: Every disease is a spectrum and a small chance still exists that a serious condition could develop, for this reason, please monitor yourself closely for new, changing or worsening symptoms, symptoms that persist beyond 48 hours or after completion of antibiotics, chest pain, difficulty breathing, fever, inability to tolerate/keep down fluids or your medications, inability to follow up with outpatient providers as instructed and should you experience these symptoms or should you have any further concerns for your wellbeing please return to the ED or call 911 immediately. PLEASE call your primary care physician as soon as possible to arrange / discuss plan for followup appointment. Appointment in the next 1-3 days is strongly encouraged if possible. PLEASE let us know here before you leave if there is anything further we can do to be of any assistance. Take care and feel Better! Prescriptions: Cephalexin [Keflex] 500 mg PO Q12HR 5 Days #10 cap Is patient prescribed a controlled substance at d/c from ED?: No Referrals: Kaylyn Toth MD [Primary Care Provider] - 1-2 days
[2024-08-09] MEDS: SODIUM CHLORIDE 0.9% 2,000 ML IV STA (05:01)
[2024-08-09] MEDS: ONDANSETRON 4 MG/2 ML VIAL IVP STA (05:02)
[2024-08-09 05:12] LABS: Anisocytosis Slight; Basophils % (A) 0 %; Eosinophils # (A) 0.1 k/uL (0-0.7); Eosinophils % (A) 1 %; HCT 24.5 % (34.0-46.0); HGB 7.3 gm/dL (11.4-16.0); Hypochromasia Marked; Lymphocytes # (A) 1.5 k/uL (1.0-4.8); Lymphocytes % (A) 24 %; MCH 21.2 pg (25.0-35.0); MCHC 29.9 g/dL (31.0-37.0); MCV 70.9 fL (80.0-100.0); Mean Platelet Volume 9.6; Microcytosis Moderate; Monocytes # (A) 0.4 k/uL (0-1.0); Monocytes % (A) 6 %; Neutrophils # (A) 4.3 k/uL (1.3-7.7); Neutrophils % (A) 68 %; Platelet Count 211 k/uL (150-450); RBC 3.46 m/uL (3.80-5.40); RDW 16.9 % (11.5-15.5); WBC 6.3 k/uL (3.8-10.6)
[2024-08-09 05:25] LABS: Anion Gap 10 mmol/L; Blood Urea Nitrogen 22 mg/dL (7-17); Carbon Dioxide 20 mmol/L (22-30); Chloride 105 mmol/L (98-107); Glucose 105 mg/dL (74-99); Potassium 3.8 mmol/L (3.5-5.1); Sodium 135 mmol/L (137-145)
[2024-08-09 05:26] LABS: ALT 8 U/L (4-34); AST 23 U/L (14-36); African American GFR (CKD) >90 (>60 ml/min/1.73 sqM); Albumin 3.9 g/dL (3.5-5.0); Alkaline Phosphatase 40 U/L (38-126); Calcium 8.4 mg/dL (8.4-10.2); HCG,Qualitative Serum Not Detected; Lipase 58 U/L (23-300); Non-African American GFR(CKD) >90 (>60 ml/min/1.73 sqM); Total Bilirubin 0.3 mg/dL (0.2-1.3); Total Protein 6.8 g/dL (6.3-8.2)
[2024-08-09 05:35] LABS: Appearance,Urine Cloudy (Clear); Bacteria,Urine Moderate /hpf; Bilirubin,Urine Negative (Negative); Blood,Urine Negative (Negative); Budding Yeast,Urine Rare /hpf; Color,Urine Colorless; Glucose,Urine (UA) Negative (Negative); Ketones,Urine Negative (Negative); Leukocyte Esterase,Urine Small (Negative); Mucus,Urine Moderate /hpf; Nitrite,Urine Positive (Negative); Protein,Urine Trace (Negative); RBC,Urine 1 /hpf (0-5); Specific Gravity,Urine 1.025 (1.001-1.035); Squamous Epithelial Cell,Urine 2 /hpf (0-4); Urobilinogen,Urine <2.0 mg/dL (<2.0); WBC,Urine 3 /hpf (0-5)
[2024-08-09] MEDS: CEPHALEXIN 500 MG CAP PO STA (06:19)
[2024-08-09 06:56] VITALS: BP 102/72; PULSE 102
[2024-08-09] MEDS: ONDANSETRON 4 MG ODT STARTER PACK 2 TAB BTL PO STA (07:05)
== END 2024-08-09 07:12 | disposition home or self-care (01) ==
LOC: EC 04:33
DX: R11.2 Nausea with vomiting, unspecified (principal); N39.0 Urinary tract infection, site not specified; Z91.018 Allergy to other foods
CPT/HCPCS: 36415; 80053; 83690; 85025; 81001; 84703; 99284; 96374; 96361 ×2; J2405; S0119

== ENCOUNTER 2025-01-28 12:26 | Emergency (ER) | payer OTHER ==
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
[2025-01-28] MEDS: ACETAMINOPHEN TAB 500 MG TAB PO STA (13:49)
[2025-01-28] MEDS: MORPHINE SULFATE 4 MG/ML SYRINGE IM STA (13:57)
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
[2025-01-28 14:59] VITALS: BP 117/82; PULSE 72; RESP 16; TEMP 98.3
== END 2025-01-28 14:59 | disposition home or self-care (01) ==
LOC: EC 12:26
DX: S16.1XXA Strain of muscle, fascia and tendon at neck level, initial encounter (principal); Z91.018 Allergy to other foods; V43.52XA Car driver injured in collision with other type car in traffic accident, initial encounter; Y92.410 Unspecified street and highway as the place of occurrence of the external cause
CPT/HCPCS: 72100; 72125; 70450; 99284; 96372; J2270